=== PATIENT | male | born 1955 | race Caucasian/White ===

== ENCOUNTER 2017-06-12 11:52 | Emergency (ER) | payer OTHER ==
[2017-06-12 12:02] VITALS: RESP 18; TEMP 97.3; O2SAT 92
[2017-06-12] MEDS ORDERED: NS 1,000 ML IV ONE (12:52)
[2017-06-12] MEDS ORDERED: KETOROLAC 15 MG/1 ML SDV IVP ONE ×2 (12:52→13:41)
--- NOTE | 2017-06-12 13:10 | EDPHY ---
H & P Stated Complaint: left hip abscess started 1 week ago Time Seen by Provider: 06/12/17 12:45 HPI/ROS: 7-10 days ago this patient 1st noticed some left hip pain. It has worsened since that time and over the past 2 days has had significant increase in pain to the area. He does not recall any injuries that he admits that he"bumps around all the time"and can be sure that he did injury. He does have history of abscesses in the past. He reports that he can't visualize the area so has not noticed if there is redness. There is tenderness associated with that and swelling. His daughter brought him in by private vehicle for evaluation of the symptoms. He has not taken any pain medication today knee reports the intensity of the pain is 8 or 9/10. ROS: Constitutional: No fevers or chills. HEENT: No complaints pulmonary: No complaints cardiovascular: No complaints. No lightheadedness. GI: Some nausea but no vomiting. Integumentary: No other skin lesions at this time. Endocrine: No complaints 10 point ROS is otherwise negative Source: Patient Exam Limitations: No limitations - Personal History Current Tetanus Diphtheria and Acellular Pertussis (TDAP): Yes Tetanus Vaccine Date: within 10 yrs - Medical/Surgical History Hx Asthma: No Hx Chronic Respiratory Disease: No Hx Diabetes: No Hx Cardiac Disease: Yes Hx Renal Disease: No Hx Cirrhosis: Yes Hx Alcoholism: Yes Hx HIV/AIDS: No Hx Splenectomy or Spleen Trauma: No Other PMH: HTN, chronic back pain hx of X2 Surg., TIA, Hep C, Mac Degen., hypothyroid - Family History Significant Family History: No pertinent family hx - Social History Smoking Status: Current some day smoker Drug Use: Heroin Additional Social History: He has been off of opiate narcotics for his chronic back pain for a year now. - Physical Exam Exam: General Appearance: Alert, no distress. Eyes: Pupils equal and round no pallor or injection. ENT, Mouth: Mucous membranes moist. Respiratory: There are no retractions, lungs are clear to auscultation. Cardiovascular: Regular rate and rhythm. Gastrointestinal: Abdomen is soft and nontender, no masses, bowel sounds normal. Neurological: GCS 15 Skin: The area of erythema overlying the left hip is 22 x 25 cm in size with warmth to touch and significant swelling. Warm and dry, no rashes. Musculoskeletal: Atraumatic normal except for left hip-left hip is tender with a large area of swelling size of to spread out hands and erythema with no clear fluctuance over the lateral hip. There is associated warmth to touch. Extremities are symmetrical, full range of motion. Psychiatric: Somewhat flat affect. Otherwise mood and affect are normal. DIFFERENTIAL DIAGNOSIS: After history and physical exam differential diagnosis was considered for hip abscess, deep cellulitis, osteomyelitis, fracture with secondary infection, hematoma with secondary infection, shooter's abscess Constitutional: Initial Vital Signs Temperature (C) 36.3 C 06/12/17 11:58 Heart Rate 101 H 06/12/17 11:58 Respiratory Rate 18 06/12/17 11:58 Blood Pressure 108/79 06/12/17 11:58 O2 Sat (%) 92 06/12/17 11:58 O2 Delivery Mode Room Air Allergies/Adverse Reactions: ORANGE DYE Allergy (Uncoded 06/12/17 11:56) Rash Home Medications: Medication Instructions Recorded Lisinopril [Zestril 20 mg (*)] 20 mg PO DAILY 08/21/13 DULoxetine [Cymbalta 30 MG (*)] 30 mg PO DAILY 05/02/15 Levothyroxine [Synthroid 150 mcg 150 mcg PO DAILY06 05/02/15 (*)] amLODIPine BESYLATE [Norvasc 10 mg 10 mg PO DAILY 05/02/15 (*)] Doxycycline Hyclate [Vibramycin 100 mg PO BID #20 cap 06/12/17 100 MG (*)] Medical Decision Making Procedures: Procedure: Abscess drainage. The patient's abscess was located on the left hip. Risks, benefits, alternatives discussed with the patient and consent obtained. The abscess was incised with a 15. blade -T-shaped 1 cm x 1 cm incision and a large purulent drainage was expressed. The wound was irrigated with 80 cc of saline until clear return and packed.The patient tolerated the procedure well. The procedure was performed by myself. There were no complications. ED Course/Re-evaluation: IV normal saline bolus Toradol IV for analgesia Ceftriaxone IV Encouraged patient to stop shooting heroin. He is seeing Dr. Walden his primary care physician and explains that he had a quit and was clean until 2 years ago after his son's started using again. Discussion: Shooter's abscess without evidence of sepsis or other complicating factors I & D'd without complications. Will plan to have the patient keep the packing in place the next few days and then follow up with his primary care physician or Infectious Disease for recheck and removal of packing. - Data Points Laboratory Results: Laboratory Results 06/12/17 13:10 06/12/17 13:10 06/12/17 06/12/17 13:10 13:10 WBC 11.26 10^3/uL H 10^3/uL (3.80-9.50) RBC 4.69 10^6/uL 10^6/uL (4.40-6.38) Hgb 13.7 g/dL g/dL (13.7-17.5) Hct 41.0 % % (40.0-51.0) MCV 87.4 fL fL (81.5-99.8) MCH 29.2 pg pg (27.9-34.1) MCHC 33.4 g/dL g/dL (32.4-36.7) RDW 13.7 % % (11.5-15.2) Plt Count 272 10^3/uL 10^3/uL (150-400) MPV 10.7 fL fL (8.7-11.7) Neut % (Auto) 68.9 % % (39.3-74.2) Lymph % (Auto) 19.6 % % (15.0-45.0) [place] % (Auto) 9.5 % % (4.5-13.0) Eos % (Auto) 1.4 % % (0.6-7.6) Baso % (Auto) 0.3 % % (0.3-1.7) Nucleat RBC Rel Count 0.0 % % (0.0-0.2) Absolute Neuts (auto) 7.76 10^3/uL H 10^3/uL (1.70-6.50) Absolute Lymphs (auto) 2.21 10^3/uL 10^3/uL (1.00-3.00) Absolute Monos (auto) 1.07 10^3/uL H 10^3/uL (0.30-0.80) Absolute Eos (auto) 0.16 10^3/uL 10^3/uL (0.03-0.40) Absolute Basos (auto) 0.03 10^3/uL 10^3/uL (0.02-0.10) Absolute Nucleated RBC 0.00 10^3/uL 10^3/uL (0-0.01) Immature Gran % 0.3 % % (0.0-1.1) Immature Gran # 0.03 10^3/uL 10^3/uL (0.00-0.10) ESR 43 MM/HR H MM/HR (0-20) Sodium 135 mEq/L mEq/L (135-145) Potassium 4.1 mEq/L mEq/L (3.5-5.2) Chloride 96 mEq/L L mEq/L (97-110) Carbon Dioxide 23 mEq/l mEq/l (22-31) Anion Gap 16 mEq/L mEq/L (8-16) BUN 14 mg/dL mg/dL (7-23) Creatinine 0.8 mg/dL mg/dL (0.7-1.3) Estimated GFR > 60 Glucose 141 mg/dL H mg/dL (70-100) Calcium 8.8 mg/dL mg/dL (8.5-10.4) Medications Given: Discontinued Medications Ceftriaxone Sodium/Dextrose (Rocephin 1 Gm (Premix)) 50 mls @ 100 mls/hr IV EDNOW ONE PRN Reason: Protocol Stop: 06/12/17 13:22 Last Admin: 06/12/17 13:23 Dose: 50 mls Sodium Chloride (Ns) 1,000 mls @ 0 mls/hr IV ONCE ONE; Wide Open PRN Reason: Protocol Stop: 06/12/17 12:53 Last Admin: 06/12/17 13:07 Dose: 1,000 mls Ketorolac Tromethamine (Toradol) 15 mg IVP EDNOW ONE Stop: 06/12/17 12:53 Last Admin: 06/12/17 13:23 Dose: 15 mg Ketorolac Tromethamine (Toradol) 15 mg IVP EDNOW ONE Stop: 06/12/17 13:42 Last Admin: 06/12/17 13:56 Dose: 15 mg Departure - Departure Disposition: Home, Routine, Self-Care Clinical Impression: Cellulitis and abscess of left lower extremity Condition: Good Instructions: Abscess (ED) Additional Instructions: Diagnosis: Hip abscess and cellulitis Plan: Stop using street drugs Ibuprofen Tylenol to control pain Doxycycline antibiotic Keep the dressing in place for the 1st 24 hr. Then removing clean with warm soapy water but try to keep the packing in for the next 3 days. Follow up with Dr. Walden or with Infectious Disease-number provided below for recheck and packing removal in 3 to 4 days. Return to the emergency department stat if he have any significant worsening of her symptoms despite the treatment plan. Referrals: Shara Walden MD [Primary Care Provider] - As per Instructions Felisha Null MD [Medical Doctor] - As per Instructions Prescriptions: Doxycycline Hyclate [Vibramycin 100 MG (*)] 100 mg PO BID #20 cap
[2017-06-12 13:14] LABS: PLATELET COUNT 272 10^3/uL (150-400)
[2017-06-12 14:51] VITALS: BP 129/72; PULSE 72
== END 2017-06-12 14:53 | disposition home or self-care (01) ==
LOC: CED 11:52
PROC: 0H9JXZZ Drainage of Left Upper Leg Skin, External Approach (ICD-10-PCS; principal; 2017-06-12)
DX: L02.416 Cutaneous abscess of left lower limb (principal); L03.116 Cellulitis of left lower limb; I10 Essential (primary) hypertension; F17.200 Nicotine dependence, unspecified, uncomplicated; E86.9 Volume depletion, unspecified
CPT/HCPCS: 10060; 73502; 96365; 96375; 96376; 99284; J0696; J1885; 80048-PO; 85025-PO; 85652-PO

== ENCOUNTER 2017-11-14 19:13 | Emergency (ER) | payer OTHER ==
[2017-11-14] MEDS ORDERED: VANCOMYCIN HCL/NORMAL SALINE 250 ML IV ONE (20:49)
[2017-11-14] MEDS ORDERED: DOXYCYCLINE 100 MG PREPACK#2 BTL TAKEHOME ONE (21:09)
--- NOTE | 2017-11-14 21:11 | EDPHY ---
H & P Stated Complaint: abscess on L hip/buttock x 2 months. now with pain/redness/ erythema. Time Seen by Provider: 11/14/17 19:28 HPI/ROS: 62-year-old male with history of IV drug abuse, presents complaining of left hip abscess. Patient states he has noticed swelling and pain actually for several months in that location however have became dramatically worse over the last 3-4 days. He states he would have drained it himself at home but he was unable to reach it or see a well. No fever, no chills Review of systems as per hpi General no fever no chills no weakness HEENT no eye pain no eye discharge. No eye redness, no sore throat Respiratory no cough, no shortness of breath Cardiac no chest pain, no peripheral edema GI no abdominal pain, no diarrhea, no constipation, no nausea, no vomiting no flank pain, no hematuria, no dysuria Musculoskeletal no myalgias, no joint pain Heme no easy bruising, no easy bleeding Endo no polyuria, no polydipsia Skin pos rashes, no pruritus Neuro no syncope, no dizziness, no headaches Psych is no suicidal ideation, no homicidal ideation Source: Patient Exam Limitations: No limitations - Personal History Current Tetanus Diphtheria and Acellular Pertussis (TDAP): Yes Tetanus Vaccine Date: within 10 yrs - Medical/Surgical History Hx Asthma: No Hx Chronic Respiratory Disease: No Hx Diabetes: No Hx Cardiac Disease: Yes Hx Renal Disease: No Hx Cirrhosis: Yes Hx Alcoholism: Yes Hx HIV/AIDS: No Hx Splenectomy or Spleen Trauma: No Other PMH: HTN, chronic back pain hx of X2 Surg., TIA, Hep C, Mac Degen., hypothyroid, high cholesterol, abscesses, depression. - Family History Significant Family History: No pertinent family hx - Social History Smoking Status: Former smoker Alcohol Use: Occasionally Drug Use: Heroin - Physical Exam Exam: 62 yo M alert and oriented in nad non toxic appearance at, nc neck supple lungs cta bilat heart rrr abd non dist bs present, soft, nt ext no cce left hip- area of [id number] x 20 cm with central area of fluctuance no active drainage , area involved is lateral left hip on to upper left gluteus no crepitus from of hip, Constitutional: Initial Vital Signs Temperature (C) 36.7 C 07/23/18 19:34 Heart Rate 80 11/14/17 19:34 Respiratory Rate 16 11/14/17 19:34 Blood Pressure 105/66 11/14/17 19:34 O2 Sat (%) 95 11/14/17 19:34 O2 Delivery Mode Room Air Allergies/Adverse Reactions: ORANGE DYE Allergy (Uncoded 11/14/17 19:33) Rash Home Medications: Medication Instructions Recorded Lisinopril [Zestril 20 mg (*)] 20 mg PO DAILY 08/21/13 DULoxetine [Cymbalta 30 MG (*)] 30 mg PO DAILY 05/02/15 Levothyroxine [Synthroid 150 mcg 150 mcg PO DAILY06 05/02/15 (*)] amLODIPine BESYLATE [Norvasc 10 mg 10 mg PO DAILY 05/02/15 (*)] Doxycycline Monohydrate 100 mg PO BID 10 Days #20 capsule 11/14/17 Suboxone 2 mg-0.5 mg SL Film 11/14/17 Medical Decision Making - Diagnostics Imaging Results: Imaging Impressions Abdomen CT 11/14/17 22:19 Impression: The patient's left hip abscess is contained within the subcutaneous fat. Results called and discussed with Kandy Wellington MD, at 11/14/2017 22:59 General information for patients regarding this examination can be found at [email or web address]. If you have questions or comments about this report, please contact me at (hospital) or [phone] (cell). Procedures: Abscess-procedure note The patient gave verbal consent for drainage of a subcutaneous abscess. Risk of bleeding and pain were explained to the patient. The most fluctuant aspect of the abscess was identified. Local anesthetic lidocaine 1% was used. A scalpel was used to incise the abscess. 90 mL of purulent drainage was expressed. Abscess was irrigated and packed. The patient tolerated procedure well. ED Course/Re-evaluation: Patient seen and evaluated for left hip abscess IV established Blood culture sent Lactate within normal limits WBC 11 CT scan abdomen pelvis with contrast to rule out deeper abscess Abscess appears superficial in nature on CT scan Impression Left hip subcutaneous abscess Plan Discharge home after incision and drainage, patient home on doxycycline Given 1 dose vancomycin in emergency department. Advise follow up with pcp and packing removal in 48-72 hours Return if worsening Differential Diagnosis: Differential diagnosis considered but not limited to Left hip subcutaneous abscess, cellulitis, intraperitoneal abscess, necrotizing fasciitis - Data Points Laboratory Results: Laboratory Results 11/14/17 20:40 11/14/17 11/14/17 11/14/17 20:51 20:46 20:40 WBC 11.67 10^3/uL H 10^3/uL (3.80-9.50) RBC 4.86 10^6/uL 10^6/uL (4.40-6.38) Hgb 13.4 g/dL L g/dL (13.7-17.5) Hct 40.6 % % (40.0-51.0) MCV 83.5 fL fL (81.5-99.8) MCH 27.6 pg L pg (27.9-34.1) MCHC 33.0 g/dL g/dL (32.4-36.7) RDW 15.3 % H % (11.5-15.2) Plt Count 423 10^3/uL H 10^3/uL (150-400) MPV 11.1 fL fL (8.7-11.7) Neut % (Auto) 59.5 % % (39.3-74.2) Lymph % (Auto) 24.7 % % (15.0-45.0) [place] % (Auto) 8.4 % % (4.5-13.0) Eos % (Auto) 6.6 % % (0.6-7.6) Baso % (Auto) 0.5 % % (0.3-1.7) Nucleat RBC Rel Count 0.0 % % (0.0-0.2) Absolute Neuts (auto) 6.95 10^3/uL H 10^3/uL (1.70-6.50) Absolute Lymphs (auto) 2.88 10^3/uL 10^3/uL (1.00-3.00) Absolute Monos (auto) 0.98 10^3/uL H 10^3/uL (0.30-0.80) Absolute Eos (auto) 0.77 10^3/uL H 10^3/uL (0.03-0.40) Absolute Basos (auto) 0.06 10^3/uL 10^3/uL (0.02-0.10) Absolute Nucleated RBC 0.00 10^3/uL 10^3/uL (0-0.01) Immature Gran % 0.3 % % (0.0-1.1) Immature Gran # 0.03 10^3/uL 10^3/uL (0.00-0.10) POC Sodium 140 mEq/L mEq/L (135-145) POC Potassium 3.8 mEq/L mEq/L (3.3-5.0) POC Chloride 98.0 mEq/L mEq/L (97-110) POC Total CO2 26 mEq/L mEq/L (22-31) POC BUN 13 mg/dL mg/dL (7-23) POC Creatinine 0.8 mg/dL mg/dL (0.7-1.3) POC Glucose 117 mg/dL H mg/dL (70-100) POC Lactic Acid [place] 1.4 mmol/L mmol/L (0.7-2.1) POC Calcium 9.7 mg/dL mg/dL (8.5-10.4) Medications Given: Discontinued Medications Doxycycline Hyclate (Vibramycin 100 Mg Prepack#2) 1 btl TAKEHOME EDNOW ONE Stop: 11/14/17 21:10 Last Admin: 11/14/17 21:34 Dose: 1 btl Fentanyl (Sublimaze) 50 mcg IVP EDNOW ONE Stop: 11/14/17 21:46 Last Admin: 11/14/17 21:50 Dose: 50 mcg Vancomycin/Sodium Chloride (Vancomycin 1 Gm (Premix)) 250 mls @ 250 mls/hr IV EDNOW ONE PRN Reason: Protocol Stop: 11/14/17 21:48 Last Admin: 11/14/17 21:35 Dose: 250 mls Ketorolac Tromethamine (Toradol) 30 mg IVP EDNOW ONE Stop: 11/14/17 21:14 Last Admin: 11/14/17 21:30 Dose: 30 mg Point of Care Test Results: CBC CBC Collection Date 11/14/17 CBC Collection Time 20:40 Chemistry 11/14/17 20:46 POC Sodium 140 mEq/L mEq/L (135-145) POC Potassium 3.8 mEq/L mEq/L (3.3-5.0) POC Chloride 98.0 mEq/L mEq/L (97-110) POC Total CO2 26 mEq/L mEq/L (22-31) POC BUN 13 mg/dL mg/dL (7-23) POC Creatinine 0.8 mg/dL mg/dL (0.7-1.3) POC Glucose 117 mg/dL H mg/dL (70-100) POC Calcium 9.7 mg/dL mg/dL (8.5-10.4) Blood Gas/Lactic Acid-Venous 11/14/17 20:51 POC Lactic Acid [place] 1.4 mmol/L mmol/L (0.7-2.1) Departure - Departure Disposition: Home, Routine, Self-Care Clinical Impression: Abscess of left hip Condition: Good Instructions: Abscess (ED) Referrals: Shara Walden MD [Primary Care Provider] - As per Instructions Prescriptions: Doxycycline Monohydrate 100 mg PO BID 10 Days #20 capsule
[2017-11-14] MEDS ORDERED: KETOROLAC 30 MG/1 ML SDV IVP ONE (21:13)
[2017-11-14] MEDS ORDERED: fentaNYL 100 MCG/2 ML INJ IVP ONE (21:45)
[2017-11-14] MEDS ORDERED: IOPAMIDOL (ISOVUE-300) 100 ML BTL ONE (22:25)
[2017-11-14 22:58] LABS: PLATELET COUNT 423 10^3/uL (150-400)
[2017-11-14 23:10] VITALS: BP 116/71
== END 2017-11-14 23:15 | disposition home or self-care (01) ==
LOC: CED 19:13
PROC: 0H98XZZ Drainage of Buttock Skin, External Approach (ICD-10-PCS; principal; 2017-11-14)
DX: L02.416 Cutaneous abscess of left lower limb (principal); I10 Essential (primary) hypertension; Z87.891 Personal history of nicotine dependence
CPT/HCPCS: 10061; 74177; 96365; 96375; 99285; J1885; J3010; J3370; Q9967; 80048-PO; 83605-PO